=== PATIENT | female | born 1990 | race Caucasian/White ===

== ENCOUNTER 2024-02-13 09:34 | Observation (INO) ==
--- NOTE | 2024-02-06 09:33 | Anesthesiology Consultation ---
Date of Service February 06, 2024 Assessment & Plan (1) Encounter for pre-operative examination: - Infectious disease screening: Per assessment on 02/06/24: No known infectious disease contacts or current infectious disease symptoms. No noted recent Covid positive test result. - Check test AM DOS Chart Review Chart Review: Acceptable Risk for Surgery and Patient NOT seen in Pre Admission Testing History Surgery Operation Date: 02/13/24 11:50 Proposed Procedures p Abdominoplasty - Isabel Beasley MD Height/Weight Height: 5 ft 10 in Weight: 70.76 kg Allergies Allergy/AdvReac Type Severity Reaction Status Date / Time Penicillins Allergy Intermediate Rash Verified 01/30/24 14:00 Medications Home Medications Medication Instructions Recorded Confirmed Last Taken tojytqqpohfd-[id number]-rlam 1 tab PO DAILY 01/30/24 01/30/24 Unknown fumarate 18 mg-folic acid 400 mcg tablet (One-A-Day Women's Complete) diazepam 5 mg tablet (Valium) 5 mg PO TID PRN muscle spasm #12 02/02/24 02/02/24 Unknown tabs oxycodone-acetaminophen 5 mg-325 1 tab PO Q4H PRN pain 3 days #18 02/02/24 02/02/24 Unknown mg tablet (Percocet) tabs Past Medical History Medical History Anxiety No meds, "Controlled" Borderline hyperlipidemia History of COVID-19 07/2020 Migraine Past Family History Family History Grandfather (Maternal) Diabetes Past Surgical History Surgical History History of dilatation and curettage History of photorefractive keratectomy (PRK) [place] teeth extracted Social History Smoking Status: Former smoker Do You Dip or Chew Tobacco: No Smoking End Date: 15 yrs ago Hx Alcohol Use: Yes Alcohol type: wine alcohol intake frequency: a few times a month Hx Substance Use: No substance use type: does not use Lab Results Anesthesia Preop Results Results Anesthesia Widget: WBC 5.30 K/ul (4.8-10.8) 02/02/24 Hgb 14.9 g/dl (12.0-16.0) 02/02/24 Hct 43.4 % (37.0-47.0) 02/02/24 Plt 189 K/uL (130-400) 02/02/24 Na 138 mmol/L (136-145) 02/02/24 K 4.5 mmol/L (3.5-5.1) 02/02/24 Cl 103 mmol/L (98-107) 02/02/24 CO2 27 mmol/L (21-32) 02/02/24 BUN 11 mg/dl (6-23) 02/02/24 Creat 0.70 mg/dl (0.6-1.2) 02/02/24 Glucose Level 95 mg/dl (70-99(Fasting)) 02/02/24 PT 10.9 Seconds (9.0-12.0) 02/02/24 INR 1.0 (0.9-1.1) 02/02/24
[~2024-02-13 09:34] MED LIST: DEXAMETHASONE SOD INJ 4 MG/ML VIAL ONE; LIDOCAINE 2% 2 ML VIAL/AMP(20MG/ML) INFIL ONE; MIDAZOLAM HCL 1 MG/ML 2ML VIAL ONE; ONDANSETRON INJ 2 MG/ML 2 ML VIAL ONE; PROPOFOL IV EMULSION 10 MG/ML 20 ML VIAL IV ONE; ROCURONIUM BROMIDE 10 MG/ML 5 ML VIAL IV ONE; fentaNYL citrate PF 100 MCG/2 ML VIAL ONE
--- NOTE | 2024-02-13 09:56 | History & Physical Bridge Note ---
Date of Service February 13, 2024 History & Physical Bridge Note I have examined the patient, reviewed the History & Physical and in the interval since the performance of the History & Physical I have noted the following changes of clinical significance: no changes noted
[2024-02-13] MEDS ORDERED: ACETAMINOPHEN 1000 MG/100 ML IV IV ONE (10:04)
[2024-02-13] MEDS ORDERED: PROMETHAZINE HCL 6.25 MG in SODIUM CHLORIDE 0.9% 50 ML IV PRN (10:05)
[2024-02-13] MEDS ORDERED: fentaNYL citrate PF 100 MCG/2 ML VIAL IV PRN (10:05)
[2024-02-13] MEDS ORDERED: HYDROmorphone INJ 2 MG/ML SYR/VIAL IV PRN (10:05)
[2024-02-13] MEDS ORDERED: ePHEDrine sulfate 50 MG/ML AMP IV PRN (10:05)
[2024-02-13] MEDS ORDERED: ONDANSETRON INJ 2 MG/ML 2 ML VIAL IV PRN (10:05)
[2024-02-13] MEDS ORDERED: ATROPINE SULFATE 0.1 MG/ML 10ML SYR IV PRN (10:05)
[2024-02-13] MEDS: LR 15ML/HR IV SCH (10:32)
[2024-02-13] MEDS: TRANEXAMIC ACID 1,000 MG **IV Pre-op IV SCH (10:45)
[2024-02-13] MEDS: CLINDA 900 MG **Premixed Bag IV SCH (11:03)
[2024-02-13] MEDS ORDERED: DexMEDEtomidine HCL IV 100 MCG/ML VIAL IV ONE (11:04)
[2024-02-13] MEDS ORDERED: ROCURONIUM BROMIDE 10 MG/ML 5 ML VIAL IV ONE (11:27)
[2024-02-13] MEDS ORDERED: SODIUM CHLORIDE 0.9% PF INJ 10 ML VIAL ONE (11:32)
[2024-02-13] MEDS ORDERED: ePHEDrine sulfate 50 MG/ML AMP ONE (11:32)
[2024-02-13] MEDS ORDERED: fentaNYL citrate PF 100 MCG/2 ML VIAL ONE (12:46)
[2024-02-13] MEDS ORDERED: SUGAMMADEX SODIUM 200 MG/2 ML VIAL IV ONE (13:14)
[2024-02-13] MEDS: BUPIVACAINE 0.25% PF 30 ML VIAL ONE (13:16)
[2024-02-13] MEDS: LIDOCAINE 1%/EPINEPHRINE 1:100,000 20 ML VIAL ONE (13:16)
[2024-02-13] MEDS: TRANEXAMIC ACID 1,000 MG **IV Intra-op IV SCH (13:18)
[2024-02-13] MEDS: LIDOCAINE 1% LOCAL 20 ML VIAL ONE (13:19)
[2024-02-13] MEDS: EpINEphrine HCL INJ 1 MG/ML 1ML SYRINGE IR ONE (13:20)
--- NOTE | 2024-02-13 13:52 | Post Operative Brief Note ---
PG Immediate Post Op with CF Date of Surgery February 13, 2024 Pre & Post Diagnosis Operation Date: 02/13/24 11:30 Pre-Op Diagnosis: Cosmetic Surgery Post-Op Diagnosis: Cosmetic Surgery I identified the patient and participated in the time-out.: Yes Procedure Operation Date: 02/13/24 11:30 Actual Procedures p Abdominoplasty with Suction-Assisted Lipectomy of Trunk(Not Applicable) - Isabel Beasley MD Surgeon Isabel Beasley MD Automatic Drilling Machine Operator Holley Kennedy PA-C Estimated Blood Loss 10 Findings Consistent with Post-Op Diagnosis Specimens Specimen Description: None collected per surgeon Drains Julio Catheter and Derrek-Zamora Drain
--- NOTE | 2024-02-13 14:25 | Operative Report ---
PG Post Operative Report Pre & Post Diagnosis Operation Date: 02/13/24 11:30 Pre-Op Diagnosis: Cosmetic Surgery Post-Op Diagnosis: Cosmetic Surgery I identified the patient and participated in the time-out.: Yes Procedure Operation Date: 02/13/24 11:30 Actual Procedures p Abdominoplasty with Suction-Assisted Lipectomy of Trunk(Not Applicable) - Isabel Beasley MD Surgeon Isabel Beasley MD Director Of Strategy & Mobile Holley Kennedy PA-C Estimated Blood Loss 10 Findings Consistent with Post-Op Diagnosis Specimens none Drains [id number] Anesthesia Type General Complications none Indications desiring improvement in cosmetic appearance of the abdomen. Description of Procedure The risks, benefits, and alternatives of the procedure were explained to the patient, who agreed and signed consent. She was identified and marked in the preoperative holding area. She was brought to the operating room, where she was positioned supine and placed under general anesthesia without incident. A narvaez catheter was placed. Surgical site was prepped and draped sterilely. A time-out procedure was performed. I reassessed my markings which included a lower horizontal abdominal incision marked 8 cm above the vulvar commissure. Incision was marked bilaterally to the ASIS. I began with the liposuction portion of the procedure. 4 small stab incisions were marked within tissue that I planned to resect. 1% lidocaine with epinephrine was used anesthetize the sites. 15 blade scalpel was used to make a small stab incision. Tumescent fluid was then infiltrated into the planned areas of liposuction which included the lower flanks and epigastric area. A total of 360 cc of tumescent fluid was infiltrated into these sites. A 3 mm liposuction cannula was selected. Pretunneling was performed from multiple directions into each area of planned liposuction. Following pretunneling, suction was applied. Suction was applied from multiple directions and the cannula was passed. Care was taken to keep the suction cannula beneath Parviz's fascia as much as possible in order to preserve blood supply. Endpoints of liposuction were improvement in contour. Minimal bloody aspiration was obtained. A total of approximately 300 cc of Lipo aspirate was obtained. I then injected 1% lidocaine with epinephrine along the planned lower abdominal incision. The lower abdominal incision was made using a 15-blade scalpel to incise epidermis and superficial dermis followed by electrocautery to incise deep dermis, subcutaneous fat, Parviz's fascia down to the abdominal wall. Electrocautery was used to elevate the anterior abdominal skin flap ligating the perforating vessels with electrocautery. Dissection was carried up to the level of the umbilicus in the midline. At this point, a 15- blade scalpel was used to circumscribe the umbilicus. A vertical midline incision was then made from the incision to the umbilicus and divided in the midline using electrocautery. The umbilicus was then dissected out using electrocautery down to abdominal wall. The umbilical stalk appeared viable throughout the procedure.I continued undermining the abdominal wall skin flap above the umbilicus to the xiphoid process, significantly narrowing the dissection to avoid jeopardizing blood supply.Following completion of this, I began repair of the rectus diastasis, which was about 3 cm in greatest diameter and extended nearly the full length of the abdomen, widest surrounding the umbilicus. Plication from the xiphoid to the umbilicus and from the umbilicus to the pubic symphysis was performed using 0 Prolene interrupted [id number]-[id number] sutures. 0 Prolene running suture was then placed to oversew the [id number]-[id number]-gzhci sutures and reinforced the repair. At this point, the bed was flexed and the mid portion of the superior skin flap was inset above the mons pubis using 2-0 Vicryl suture. Skin flaps were marked for excision. A 15-blade scalpel was used to make these incisions and the incision was deepened through dermis, subcutaneous fat, Parviz's fat using electrocautery. Some subscarpal fat was resected directly to improve contour. 15 Estonian Noe drains were placed in the wound bed and brought out through a separate stab incision in the mons pubis. 0.25% Marcaine plain was injected into the fascia and long the wound edges. The drains were sutured into place using 3-0 nylon. The umbilicus was brought out through an inverted triangular incision in the abdominal wall. This was performed using a 15-blade scalpel.Wound closure was then begun lateral to medial using 2-0 Vicryl Parviz's fascia sutures, 2-0 Vicryl deep dermal sutures, 2-0 PDO running superficial Quill suture, 3-0 Monocryl running subcuticular suture. Umbilicus was brought out through the inverted triangle incision and was sutured into place using 4-0 chromic half buried horizontal mattress sutures. The umbilicus was dressed using Xeroform and the incision was dressed using Dermabond Prineo followed by dry dressings and an abdominal binder. The procedure was tolerated well. The patient was awakened and transferred to recovery in satisfactory condition. Holley Kennedy PA-C was present and scrubbed throughout the procedure, assisting in retraction during dissection, hemostasis and simultaneous wound closure. I attest to the content of the Intraoperative Record and any orders documented therein. Any exceptions are noted below.
--- NOTE | 2024-02-13 14:33 | Anesthesiology Progress Note ---
Date of Service February 13, 2024 Anesthesia Post Procedure Vital Signs Vital Signs: Temp Pulse Resp BP Pulse Ox O2 Del Method 02/13/24 14:20 75 14 115/65 99 Room Air 02/13/24 14:10 55 L 13 118/61 100 Room Air 02/13/24 14:02 36.2 C L 78 10 L 108/61 100 Room Air 02/13/24 10:18 36.5 C 70 20 121/75 100 Room Air Transfer of Care Handoff Completed per policy Notes Mental Status: alert / awake / arousable and participated in evaluation Patient Amnestic to Procedure: Yes Nausea / Vomiting: adequately controlled Pain: adequately controlled Airway Patency, RR, SpO2: stable & adequate BP & HR: stable & adequate Hydration State: stable & adequate Anesthetic Complications: no major complications apparent
[2024-02-13] MEDS ORDERED: MoRPHine SULFATE 4 MG/ML 1 ML CARP\\VIAL IV PRN (15:07)
[2024-02-13] MEDS ORDERED: LORazepam 0.5 MG TAB PO PRN (15:07)
[2024-02-13] MEDS ORDERED: PROMETHAZINE HCL 12.5 MG in SODIUM CHLORIDE 0.9% 50 ML IV PRN (15:07)
[2024-02-13] MEDS ORDERED: diphenhydrAMINE Capsule 25 MG CAP PO PRN (15:07)
[2024-02-13] MEDS ORDERED: diphenhydrAMINE 50 MG/ML VIAL IV PRN (15:07)
[2024-02-13] MEDS: D5W AND 1/2NSS 1,000 ML IV SCH (15:50)
[2024-02-13] MEDS: MoRPHine SULFATE 2 MG/ML CARP IV PRN (15:52)
[2024-02-13] MEDS: CLINDAMYCIN/D5W 600 MG/50 ML BAG IV SCH (18:09)
[2024-02-13] MEDS: oxyCODONE/ACETAMINOPHEN 5mg/325mg TAB PO PRN (19:41)
[2024-02-14] MEDS: oxyCODONE/ACETAMINOPHEN 5mg/325mg TAB PO PRN (05:05)
--- NOTE | 2024-02-14 08:53 | Surgery Progress Note ---
Date of Service February 14, 2024 Assessment & Plan (1) Encounter for cosmetic surgery: Plan: Doing well S/P abdominoplasty. Patient assisted in OOB, is attempting to void. Once able to void, may be d/c home today with office follow-up tomorrow.We reviewed high protein diet and activity restrictions. She understands to ambulate to decrease DVT risk, may not stand or lay flat yet. Admission and Anticipated Discharge Date Admission Date: February 13, 2024 Subjective Patient resting in bed. Pain is managed Julio removed, has not voided yet. She has been OOB. Physical Exam Physical Exam: BP 99/61- patient asymptomatic and runs low at baseline. drains with serosang output. abd binder in place Results & Data Vital Signs (Past 12 Hours) Vital Signs Temp Pulse Resp BP BP Pulse Ox O2 Del Method 02/14/24 07:49 36.7 C 62 16 92/62 L 99/61 L 97 Room Air 02/14/24 03:06 36.6 C 49 L 16 95/61 L 97 Room Air 02/13/24 23:06 36.7 C 56 L 16 96/59 L 98 Room Air PG Care Time/CCT Total # of Minutes Spent Total Time Spent with Patient: Total time spent is greater than 50% in coordination of care (as documented) at patient's floor/unit and/or counseling patient: Coding Level of Care Code None Diagnoses Encounter for cosmetic surgery Z41.1
[2024-02-14] MEDS: ACETAMINOPHEN 325 MG TAB PO PRN (09:01)
[2024-02-14] MEDS: MULTIVITAMIN TAB PO SCH (09:02)
[2024-02-14] MEDS: ONDANSETRON INJ 2 MG/ML 2 ML VIAL IV PRN (09:29)
--- NOTE | 2024-02-17 09:14 | Discharge Summary ---
Date of Service February 17, 2024 Admission HPI Per Admitting Provider Please see admission H and P Admission Exam Per Admitting Provider Please see admission H and P Principal Diagnosis Encounter for Cosmetic Surgery Discharge Data Allergies Allergy/AdvReac Type Severity Reaction Status Date / Time Penicillins Allergy Intermediate Rash Verified 02/13/24 10:17 Procedures Performed Operation Date: 02/13/24 11:30 Actual Procedures p Abdominoplasty with Suction-Assisted Lipectomy of Trunk(Not Applicable) - Isabel Beasley MD Hospital Course (1) Encounter for cosmetic surgery: Plan Mary is a 33-year-old female who presented for cosmetic surgery. Mary underwent Abdominoplasty with Suction-Assisted Lipectomy of Trunk. There were no intraoperative complications. She was admitted to Med/Surg floor for overnight observation. On POD #1, she was sore, but her pain was controlled. She was able to void on her own. She was tolerating a regular diet. Vital signs were stable. She was discharged to home after reviewing discharge instructions. She was encouraged to ambulate as much as possible at home while recovering. She will keep surgical binder and dressings in place until her next office visit. She has an appointment to follow-up in our office tomorrow. All questions were answered. Total Time Total Time Spent Total Time Spent (In Minutes): 15 Discharge Plan Discharge Items Patient Disposition: Home - Self-Care Reason For Visit: [place] for Cosmetic Surgery Discharge Diagnosis: s/p abdominoplasty Activity: As commented below Non-emergency contact: Surgeon Call non-emergency contact if: you have any medication questions, your pain is worsening, you have a fever, your wound has increased redness and your wound has increased drainage Follow-up/Referrals: Holley Kennedy PA-C [Physician [facility]] - 02/15/24 1:30 pm Francisco Garcia PA-C [Primary Care Provider] - Diet: Regular Addtl Attending Provider Instructions: ACTIVITY RECOMMENDATIONS: __Normal activities _x_No bending, lifting or straining. Do not stand or lay flat __No driving __Driving allowed when you are off pain medications _x_Walking permitted and encouraged __You should have help at home for ___ days DRESSINGS: __No dressings required _x_Keep dressings dry/in place until first office visit __Remove dressings ___ and leave dressings off __Apply ice ___ days __Remove dressings and reapply garment __Apply antibiotic ointment (Bacitracin, Neosporin, etc) to wounds 3-4 times/day for 10 days BATHING: _x_Keep dressings dry _x_Sponge bathing permitted __Showering permitted x__No swimming, hot tubs or soaking in a tub MEDICATIONS: Resume previous medications unless instructed otherwise by your surgeon. _x_Do not use aspirin, Motrin, Advil or Ibuprofen as these may promote bleeding. Please use Tylenol. _x_Prescription(s) provided: pain medications were provided at your last office visit OTHER INSTRUCTIONS: __Record drain output 2-3 times per day SPECIAL CARE INSTRUCTIONS: * It is normal to have a mild fever after surgery. If your temperature is higher than 101.5 degrees F, please call the office at [phone]. * Constipation is a typical side effect of pain medication. An mvmj-ynj-wjffraq stool softener will help relieve this. * Leaking around surgical drains may occur and should not cause concern. Sometimes these drains become clogged. If this happens, remove the bulb and milk the clot out of the tube, then replace the bulb. * Drainage from wounds after liposuction is normal and should be expected. Garments will become soiled. You should protect furniture and bedding. This drainage should mostly subside within 2-3 days. Leave garments in place unless instructed to remove them. * If you have unusual drainage from a wound or are concerned you have an infection or have any questions or concerns, please call the office at [phone]. FOLLOW UP VISIT: If not already scheduled, please call the office, , when you return home after surgery to schedule an appointment to be seen in _1__ days. Pending Studies at Discharge: No Stand-Alone Forms: [facility] - Opioid Pain Management, Smoking Cessation Medications and DC Order Prescriptions: Continued oxycodone-acetaminophen [Percocet] 5-325 mg tablet 1 tab PO Q4H PRN (Reason: pain) 3 Days Qty: 18 0RF Rx Instructions: Initial therapy. diazepam [Valium] 5 mg tablet 5 mg PO TID PRN (Reason: muscle spasm) Qty: 12 0RF Rx Instructions: Initial therapy. One-A-Day Women's Complete 18 mg iron- 400 mcg Tablet 1 tab PO DAILY Hold Instructions: SURGERY No Action oxycodone-acetaminophen [Percocet] 5-325 mg tablet 1 tab PO Q4H PRN (Reason: pain) Qty: 20 0RF Rx Instructions: Continued therapy. Discharge Orders: Discharge Order (Routine); Ordered 02/14/24 Ordered By: Holley Grigsby/Other Patient Handouts: Abdominal Surgery Dc Admission Data Admit Date/Time: 02/13/24 14:02 Attending Provider: Isabel Beasley Admit Provider: Isabel Beasley Primary Care Provider: Francisco Garcia Other Interventions: Discharge Summary Assessment (RN) Last Done: 02/14/24 09:14 Coding Level of Care Code 12968 OBS Care - Discharge Diagnoses Encounter for cosmetic surgery Z41.1
== END 2024-02-14 10:11 | disposition home or self-care (01) ==
LOC: ASU 09:34 → 3E 09:34